=== PATIENT | female | born 1995 | race Two or more races ===

== ENCOUNTER 2017-01-05 14:16 | Inpatient (IN) | payer BC ==
[2017-01-05 15:03] LABS: Urine Bacteria 1+ (Absent); Urine Bilirubin Negative (Negative); Urine Glucose Negative (Negative); Urine Nitrite Negative (Negative)
[2017-01-05 15:20] LABS: Benzodiazepine Urine Screen None Detected (None Detect)
[2017-01-05] MEDS ORDERED: LORazepam TAB(*) 1 MG PO ONE (16:04)
[2017-01-05 16:10] LABS: Hematocrit 40 % (35-47); Hemoglobin 12.9 g/dl (12.0-16.0); Mean Corpuscular HGB Conc 33 g/dl (31-36); Mean Corpuscular Hemoglobin 26 pg (27-31); Mean Corpuscular Volume 81 fL (80-97); Mean Platelet Volume 9 um3 (7.4-10.4); Red Blood Count 4.91 10^6/ul (4.0-5.4); Red Cell Distribution Width 16 % (10.5-15); White Blood Count 7.4 10^3/ul (3.5-10.8)
--- NOTE | 2017-01-05 16:15 | ED ---
Psychiatric Complaint - HPI Summary HPI Summary: Patient presents with family. She states she has been feeling depressed d/t boyfriend breaking up with her. She has anxiety and depression at baseline and has been worsening. She takes sertraline and ativan PRN at home. Denies drugs or ETOH use. Denies physical pain. No other health problems. Denies SI/ HI or self harm at this time. - History Of Current Complaint Chief Complaint: EDMentalHealth Time Seen by Provider: 01/05/17 14:31 Hx Obtained From: Patient ?: No Onset/Duration: Sudden Onset Timing: Constant Severity Initially: Moderate Severity Currently: Moderate Character: Depressed, Anxious Aggravating Factor(s): Nothing Alleviating Factor(s): Nothing Associated Signs And Symptoms: Positive: Confused Has Suicidal: Reports: Thoughts Has Homicidal: Reports: Thoughts - Risk Factor(s) Completed Suicide Risk Factors: Male, White P[place] - Allergies/Home Medications Allergies/Adverse Reactions: Allergies Allergy/AdvReac Type Severity Reaction Status Date / Time No Known Allergies Allergy Verified 01/05/17 14:29 PMH/Surg Hx/FS Hx/Imm Hx Previously Healthy: Yes Endocrine/Hematology History: Denies: Hx Diabetes Cardiovascular History: Denies: Hx Hypertension, Other Cardiovascular Problems/Disorders Respiratory History: Denies: Other Respiratory Problems/Disorders GI History: Denies: Other GI Disorders History: Denies: Hx Renal Disease Musculoskeletal History: Denies: Other Musculoskeletal History Sensory History: Denies: Hx Contacts or Glasses, Hx Hearing Aid Opthamlomology History: Denies: Hx Contacts or Glasses Neurological History: Denies: Other Neuro Impairments/Disorders Psychiatric History: Reports: Hx Anxiety - ON MEDS, Hx Depression - ON MEDS - Surgical History Hx Anesthesia Reactions: No - Immunization History Immunizations Up to Date: Unable to Obtain/Confirm Infectious Disease History: No Infectious Disease History: Denies: Traveled Outside the [place] in Last 30 Days - Family History Known Family History: Positive: Other - no fhx of anesthesia rxn, malignant hyperthermia Negative: Cardiac Disease - Social History Occupation: Unemployed Lives: With Family Alcohol Use: None Hx Substance Use: Yes Substance Use Type: Reports: Marijuana Hx Tobacco Use: No Smoking Status (MU): Never Smoked Tobacco Review of Systems Constitutional: Negative Negative: Chills, Fatigue Eyes: Negative Cardiovascular: Negative Respiratory: Negative Genitourinary: Negative Positive: no symptoms reported, see HPI Neurological: Negative Positive: Anxious, Depressed All Other Systems Reviewed And Are Negative: Yes Physical Exam Triage Information Reviewed: Yes Vital Signs On Initial Exam: Initial Vitals Temp Pulse Resp BP Pulse Ox 101 F 118 22 139/73 99 01/05/17 14:20 01/05/17 14:20 01/05/17 14:20 01/05/17 14:20 01/05/17 14:20 Vital Signs Reviewed: Yes Appearance: Positive: Well-Appearing, Well-Nourished Skin: Positive: Warm, Skin Color Reflects Adequate Perfusion Head/Face: Positive: Normal Head/Face Inspection Eyes: Positive: EOMI, TAMARA, Conjunctiva Clear Neck: Positive: Supple, No Lymphadenopathy Respiratory/Lung Sounds: Positive: Clear to Auscultation, Breath Sounds Present Cardiovascular: Positive: Normal, RRR, Pulses are Symmetrical in both Upper and Lower Extremities Musculoskeletal: Positive: Strength/ROM Intact Neurological: Positive: Speech Normal Psychiatric: Positive: Normal - Carola Coma Scale Coma Scale Total: 15 Diagnostics - Vital Signs Vital Signs Temp Pulse Resp BP Pulse Ox 01/05/17 14:20 101 F 118 22 139/73 99 - Laboratory Lab Results: Lab Results 01/05/17 01/05/17 Range/Units 14:20 14:20 Urine Color Yellow Urine Appearance Cloudy Urine pH 6.0 (5-9) Ur Specific [place] 1.029 (1.010-1.030) Urine Protein 1+(30 mg/dl) H (Negative) Urine Ketones 2+ H (Negative) Urine Blood Negative (Negative) Urine Nitrate Negative (Negative) Urine Bilirubin Negative (Negative) Urine Urobilinogen Negative (Negative) Ur Leukocyte Esterase Negative (Negative) Urine WBC (Auto) Absent (Absent) Urine RBC (Auto) Absent (Absent) Ur Squamous Epith Cells Present H (Absent) Urine Bacteria 1+ H (Absent) Hyaline Casts Present H (Absent) Urine Glucose Negative (Negative) Urine Opiates Screen None detected (None Detect) Ur Barbiturates Screen None detected (None Detect) Ur Phencyclidine Scrn None detected (None Detect) Ur Amphetamines Screen None detected (None Detect) U Benzodiazepines Scrn None detected (None Detect) Urine Cocaine Screen None detected (None Detect) U Cannabinoids Screen Presumptive positive H (None Detect) Result Diagrams: 01/05/17 15:45 01/05/17 15:45 Lab Statement: Any lab studies that have been ordered have been reviewed, and results considered in the medical decision making process. Course/Dx - Course Course Of Treatment: Patient evaluated for depression and anxiety. She is cleared for MHU. Will admit for observation. Given ativan in ED for anxiety. - Differential Dx/Clinical Impression Provider Diagnosis: Depression Discharge - Discharge Plan Condition: Stable Disposition: ADMITTED TO [facility] Referrals: Samia Schulte MD [Primary Care Provider] -
[2017-01-05 16:23] LABS: ALT 12 U/L (7-52); AST 17 U/L (13-39); Albumin 4.4 g/dL (3.2-5.2); Alkaline Phosphatase 44 U/L (34-104); Anion Gap 8 mmol/L (2-11); BUN/Creatinine Ratio 15.6 (8-20); Blood Urea Nitrogen 12 mg/dL (6-24); CO2 Carbon Dioxide 24 mmol/L (22-32); Calcium 10.5 mg/dL (8.6-10.3); Chloride 106 mmol/L (101-111); EGFR African American 122.9 (>60); EGFR Non-African American 95.6 (>60); Globulin 3.6 g/dL (2-4); Glucose 109 mg/dL (70-100); Potassium 3.4 mmol/L (3.5-5.0); Sodium 138 mmol/L (133-145)
[2017-01-05 16:45] LABS: Acetaminophen < 15 mcg/mL; Alcohol < 10 mg/dL (<10); Salicylate < 2.50 mg/dL (<30)
[2017-01-05 16:49] LABS: TSH (Thyroid Stimulating Horm) 1.15 mcIU/mL (0.34-5.60)
[2017-01-05] MEDS ORDERED: Al Hydrox/Mg Hydrox/Simet LIQ* 30 ML UDC PO PRN (21:35)
[2017-01-06] MEDS: hydrOXYzine HCL TAB* 50 MG PO PRN ×2 (06:10→16:23)
[2017-01-06] MEDS: Sertraline* 100 MG TAB PO SCH (08:02)
[2017-01-06] MEDS: Vitamin THERAPEUTIC TAB PO SCH (08:02)
[2017-01-06] MEDS: Acetaminophen TAB* 325 MG PO PRN (11:11)
--- NOTE | 2017-01-06 11:29 | PN ---
MHU: Group Therapy Note - Service Type Service Type: [id number] Group Psychotherapy - Cognitive Behavioral Group Therapy ( CBT):Patient was attentive and participatory in CBT programming this morning, and remained in good behavioral control. Patient expressed positive insights regarding relevant treatment interventions and goals.
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
[2017-01-06] MEDS ORDERED: Clomipramine (NF) 50 MG CAP PO SCH (21:00)
[2017-01-07] MEDS: Vitamin THERAPEUTIC TAB PO SCH (08:23)
[2017-01-07] MEDS: hydrOXYzine HCL TAB* 50 MG PO PRN ×3 (08:23→23:12)
[2017-01-07] MEDS: Sertraline* 100 MG TAB PO SCH (08:23)
[2017-01-07] MEDS: Ondansetron TAB* 4 MG PO PRN (12:29)
[2017-01-07] MEDS: CMC:ClomiPRAMINE (NF) 25 MG CAP PO SCH (21:59)
[2017-01-08] MEDS: hydrOXYzine HCL TAB* 50 MG PO PRN ×2 (07:15→13:41)
[2017-01-08] MEDS: Sertraline* 100 MG TAB PO SCH (08:20)
[2017-01-08] MEDS: Vitamin THERAPEUTIC TAB PO SCH (08:20)
--- NOTE | 2017-01-08 18:13 | PN ---
Subjective - Subjective Service Type: 39711 Hosp care 15 min low complexity Subjective: Michelle reports of feeling much better with improved mood and decreased anxiety. Went out on staff pass. Still not sleeping well. Objective - Appearance Appearance: Thin Framed Dysmorphic Features: No Hygiene: Normal Grooming: Fairly Well Kept - Behavior Psychomotor Activities: Normal Exhibits Abnormal Movement: No - Attitude and Relatedness Attitude and Relatedness: Appropriate Eye Contact: Good - Speech Quality: Unpressured Latencies: Normal Quantity: Appropriate - Mood Patient's Decription of Mood: "Fine" - Affect Observed Affect: Non-labile Affect Consistent with: Euthymia - Thought Process Patient's Thought Process: Coherent, Goal Directed Thought Content: No Passive Wish, No Suicidal Planning, No Homicidal Ideation, No Paranoid Ideation - Sensorium Experiencing Hallucinations: No, Sensorium is Clear Type of Hallucinations: Visual: No, Auditory: No, Command: No - Level of Consciousness Level of Consciousness: Alert Orientation: Yes Intact, Yes Orientated to Time, Yes Orientated to Place, Yes Orientated to Person - Insight and Judgement Insight and Judgement: Fair - Group Participation Particating in Group Activities: Yes - Medication Management Medication Management Adherence: Yes Assessment - Assessment Merits Inpatient Hospitalization: Consolidate Improvements, For Discharge Planning Plan - Plan Treatment Plan: Name: MICHELLE LONDON Birthdate: 1995 [id number] Continued Medication Management: Continue Outpt Medication Medications: Current Medications Acetaminophen (Tylenol Tab*) 650 mg PO Q4H PRN PRN Reason: PAIN or TEMP > 101 F Last Admin: 01/06/17 11:11 Dose: 650 mg Al Hydrox/Mg Hydrox/Simethicone (Maalox Plus*) 30 ml PO Q4H PRN PRN Reason: INDIGESTION Clomipramine HCl (Clomipramine (Nf)) 50 mg PO BEDTIME [facility] Last Admin: 01/07/17 21:59 Dose: 50 mg Diphenhydramine HCl (Benadryl Po*) 50 mg PO Q6H PRN PRN Reason: INSOMNIA Hydroxyzine HCl (Atarax Tab*) 50 mg PO Q6H PRN PRN Reason: ANXIETY Last Admin: 01/08/17 13:41 Dose: 50 mg Multivitamins (Theragran Tab*) 1 tab PO DAILY GÓMZE Last Admin: 01/08/17 08:20 Dose: 1 tab Ondansetron HCl (Zofran Tab*) 4 mg PO Q8H PRN PRN Reason: NAUSEA Last Admin: 01/07/17 12:29 Dose: 4 mg Sertraline HCl (Zoloft*) 100 mg PO DAILY GÓMEZ Last Admin: 01/08/17 08:20 Dose: 100 mg - Discharge Plan Discharge Plan: Outpatient Follow Up Outpatient Program: [facility]
[2017-01-08] MEDS: Acetaminophen TAB* 325 MG PO PRN (19:58)
[2017-01-08] MEDS: CMC:ClomiPRAMINE (NF) 25 MG CAP PO SCH (20:53)
[2017-01-09] MEDS: Sertraline* 100 MG TAB PO SCH (08:08)
[2017-01-09] MEDS: Vitamin THERAPEUTIC TAB PO SCH (08:08)
[2017-01-09] MEDS: hydrOXYzine HCL TAB* 50 MG PO PRN (08:08)
--- NOTE | 2017-01-09 13:20 | PN ---
MHU: Group Therapy Note - Service Type Service Type: [id number] Group Psychotherapy - Cognitive Behavioral Group Therapy ( CBT):Patient was attentive and participatory in CBT programming this morning, and remained in good behavioral control. Patient expressed positive insights regarding relevant treatment interventions and goals.
--- NOTE | 2017-01-09 15:31 | PN ---
Subjective - Subjective Service Type: [id number] Hosp care 15 min low complexity Subjective: Patient reports improvement in mood and anxiety. She states that "it's been a long time since going this long without weed." She states she is trying to identify her own emotions and trying to take responsibility for them. She is proud of herself for having a difficult conversation with her mother and being able to talk through it. She states she is "learning a lot" while hospitalized. She reports improved sleep and appetite. She denies nausea and has only taken ondansetron once. She endorses anxiousness about discharge and would prefer to continue to stay until mid-week to gain full benefit of hospitalization. Patient reports onset of dry mouth and increased tremor. Will decrease sertraline and obtain clomipramine level. We discuss use of gabapentin for off- label anxiolytic. Objective - Appearance Appearance: Well Developed/Nourished Dysmorphic Features: Yes Hygiene: Normal Grooming: Fairly Well Kept - Behavior Psychomotor Activities: Normal - Attitude and Relatedness Attitude and Relatedness: Cooperative Eye Contact: Good - Speech Quality: Unpressured Latencies: Normal Quantity: Appropriate - Mood Patient's Decription of Mood: "Good" - Affect Observed Affect: Good Affect Consistent with: Euthymia - Thought Process Patient's Thought Process: Coherent, Goal Directed Thought Content: No Passive Wish, No Suicidal Planning, No Homicidal Ideation, No Paranoid Ideation - Sensorium Experiencing Hallucinations: No, Sensorium is Clear Type of Hallucinations: Visual: No, Auditory: No, Command: No - Level of Consciousness Level of Consciousness: Alert Orientation: Yes Intact, Yes Orientated to Time, Yes Orientated to Place, Yes Orientated to Person - Impulse Control Impulse Control: Tenuous - Insight and Judgement Insight and Judgement: Good - Group Participation Particating in Group Activities: Yes - Medication Management Medication Management Adherence: Yes Assessment - Assessment Merits Inpatient Hospitalization: For Immediate Safety, For Stabilization, For Discharge Planning Inpatient DSM-IV Dx: major depressive d/o; excoriation d/o; cannabis use d/o; consider dependant personality traits Plan - Plan Treatment Plan: Name: MICHELLE LONDON Birthdate: 1995 [id number] continue acute intensive psychiatric treatment. DC hydroxyzine and trial gabapentin; decrease sertraline and obtain TCA level. Continue q30min observation and allow staff pass. Continued Medication Management: Different Medication Medications: Current Medications Acetaminophen (Tylenol Tab*) 650 mg PO Q4H PRN PRN Reason: PAIN or TEMP > 101 F Last Admin: 01/08/17 19:58 Dose: 650 mg Al Hydrox/Mg Hydrox/Simethicone (Maalox Plus*) 30 ml PO Q4H PRN PRN Reason: INDIGESTION Clomipramine HCl (Clomipramine (Nf)) 50 mg PO BEDTIME [facility] Last Admin: 01/08/17 20:53 Dose: 50 mg Diphenhydramine HCl (Benadryl Po*) 50 mg PO Q6H PRN PRN Reason: INSOMNIA Gabapentin (Neurontin Cap(*)) 100 mg PO BID [facility] Multivitamins (Theragran Tab*) 1 tab PO DAILY [facility] Last Admin: 01/09/17 08:08 Dose: 1 tab Ondansetron HCl (Zofran Tab*) 4 mg PO Q8H PRN PRN Reason: NAUSEA Last Admin: 01/07/17 12:29 Dose: 4 mg Sertraline HCl (Zoloft*) 50 mg PO DAILY GÓMEZ - Discharge Plan Discharge Plan: Outpatient [facility]
[2017-01-09] MEDS: Gabapentin CAP(*) 100 MG PO SCH (21:10)
[2017-01-09] MEDS: CMC:ClomiPRAMINE (NF) 25 MG CAP PO SCH (21:11)
[2017-01-10] MEDS: Sertraline* 50 MG TAB PO SCH (08:19)
[2017-01-10] MEDS: Gabapentin CAP(*) 100 MG PO SCH ×3 (08:19→21:17)
[2017-01-10] MEDS: Vitamin THERAPEUTIC TAB PO SCH (08:19)
[2017-01-10] MEDS: Ondansetron TAB* 4 MG PO PRN (12:01)
--- NOTE | 2017-01-10 13:28 | CONS ---
PSYCHOLOGICAL REPORT: DATE OF CONSULTATION: 01/10/17 REASON FOR REFERRAL: Ela was referred for personality testing secondary to concerns regarding characterological vulnerabilities consistent with borderline personality disorder, as well as in assessing possible lethality. The patient expressed intrusive thoughts of suicidal rumination prior to her admission. TEST ADMINISTERED: Ela completed the [place] Multiphasic Personality Inventory-2 (MMPI-2), and was given feedback regarding testing results in individual conversation. She has also been seen by this medical writer consistently in the context of cognitive behavioral group psychotherapy facilitated by this medical writer. BEHAVIORAL OBSERVATIONS: Ela is a 21-year-old female who describes a long history of delicate self-mutilation, showing scarring on ankles and wrists. Her cuts have never required medical attention, but the behaviors have persisted over a period of years. She describes beginning to pick at her skin at the age of 11, and beginning to cut in high school years. She describes cutting intermittently, often going a year at a time without engaging in such conduct, but it tends to recur under periods of intense emotional duress. Most recent difficulties are associated with breakup of a boyfriend of 8 months duration. She describes engaging in a pattern of interventions, which she feels might have overwhelmed him, stating, "I did not take care of him very well ". Discussion also addressed more stable sense of disappointment in that she was unable to complete a semester at [employer] where she had begun studying Music as her major. She describes having always thought of wanting to be a vocal music teacher from the time she was in 7th grade up until college, where she describes not fitting in well with her peers at [employer] and describing how, "alter competitive" it is and do not identify with studying music in the fashion that they demanded of her. This remains a social disappointment as she very clearly identifies with her enjoyment of music. However, she does report not having played the flute in over a year's time, which she thinks is very uncharacteristic of her. She presently works at [employer] full-time, but is thinking of asking for part-time status in order to attend mental health treatment including the [facility] Program through [facility] as well as considering enrolling in classes at [employer] to resume studies on a part-time basis. She is unsure of where she would want to go for full-time academics presently, but hopes to begin to find some clarity in regards as to whether or not she wishes to pursue her continuing interest in music or change majors in her interest. Ela presents with good affect, that is euthymic in both individual and group conversation. She is empathic with staff and peers and initiates thoughtful clinical questions and clearly is in a place and time where she is, hoping to elicit help for better understanding and comprehension of how to manage her symptoms. In particular, she expresses apprehensions about self- perception and was able to discuss this in relevant context of appropriate developmental dynamic for her at this point of time in her life. TEST RESULTS: Ela provides a distress profile on the validity scale indices on this administration of the MMPI-2, having elevated the emotional duress scales significantly (T = 90 to 100). She subsequently elevates 7 of the 10 clinical indices with the most prominent elevations occurring on the neurotic triad, which she attains depression T score of 90 with concomitant elevations also occurring on the anxiety index as well as on the schizophrenia index, which in this case is descriptive of a person who is not feeling supported or understood by significant others in her life presently. Discussion with Ela associated this with her disappointments about her recent breakup as well as her struggles academically at [employer] On further discussion addressed physical symptoms, where she reports fairly intense and regular headaches and gastrointestinal symptoms, which are been consistent with persons who elevate the neurotic triad and who employ repression as the primary coping mechanism. Discussion here address the importance of finding expression for her difficulties in a more proactive fashion. IMPRESSIONS AND RECOMMENDATIONS: Ela felt that discussions addressing borderline personality traits in both her presentations as well as in testing contacts resonated well with her, and she was interested in learning more about how to manage these difficulties. Discussion addressed self-perception in particular as she does not press as a person who harbors a great deal of anger or resentments. She agreed with this quite quickly and described herself as being "a chameleon" and how she tries to fit in especially with significant partners in her life. Discussion addressed trying to develop and maintain more stable sense of self, which is less vulnerable to relational difficulties, relating how persons in her age range often have a great deal of difficulties and subsequent instability emotionally secondary to emotional duress in a relational context. Ela impresses as being a very good candidate to engage and benefit from insight oriented psychotherapies including educational and expressive group interventions. DIAGNOSTIC IMPRESSION: Supports major depressive disorder, moderate, without psychosis as well as borderline personality disorder. [id number]/[facility] #: [id number] SANYA
[2017-01-10] MEDS ORDERED: Gabapentin CAP(*) 100 MG PO SCH (15:17)
--- NOTE | 2017-01-10 15:25 | PN ---
Subjective - Subjective Subjective: Patient reports increase in anxiety and states this is likely due to nearing her chosen day of discharge. She agrees to have meeting with her mother and treatment team. She denies new side effects from medication and reports continued hand tremor. She continues to express gaining much benefit from admission to hospital. Patient reports mild urges to smoke cannabis r/t anxiety. Objective - Appearance Appearance: Well Developed/Nourished Dysmorphic Features: No Hygiene: Normal Grooming: Fairly Well Kept - Behavior Psychomotor Activities: Normal Exhibits Abnormal Movement: No - Attitude and Relatedness Attitude and Relatedness: Cooperative Eye Contact: Good - Speech Quality: Unpressured Latencies: Normal Quantity: Copious - Mood Patient's Decription of Mood: "Anxious" - Affect Observed Affect: Good Affect Consistent with: Euthymia - Thought Process Patient's Thought Process: Coherent, Goal Directed Thought Content: No Passive Wish, No Suicidal Planning, No Homicidal Ideation, No Paranoid Ideation - Sensorium Experiencing Hallucinations: No, Sensorium is Clear Type of Hallucinations: Visual: No, Auditory: No, Command: No - Level of Consciousness Level of Consciousness: Alert Orientation: Yes Intact, Yes Orientated to Time, Yes Orientated to Place, Yes Orientated to Person - Impulse Control Impulse Control: Tenuous - Insight and Judgement Insight and Judgement: Good - Group Participation Particating in Group Activities: Yes - Medication Management Medication Management Adherence: Yes Assessment - Assessment Merits Inpatient Hospitalization: For Immediate Safety, For Stabilization, For Ongoing Evaluation, Consolidate Improvements Inpatient DSM-IV Dx: major depressive d/o; excoriation d/o; cannabis use d/o; consider dependant personality traits Plan - Plan Treatment Plan: Name: MICHELLE LONDON Birthdate: 1995 [id number] continue acute intensive psychiatric treatment. Increase gabapentin; obtain TCA level. Continue q30min observation and allow staff pass. Continued Medication Management: Different Medication Medications: Current Medications Acetaminophen (Tylenol Tab*) 650 mg PO Q4H PRN PRN Reason: PAIN or TEMP > 101 F Last Admin: 01/08/17 19:58 Dose: 650 mg Al Hydrox/Mg Hydrox/Simethicone (Maalox Plus*) 30 ml PO Q4H PRN PRN Reason: INDIGESTION Clomipramine HCl (Clomipramine (Nf)) 50 mg PO BEDTIME [facility] Last Admin: 01/09/17 21:11 Dose: 50 mg Diphenhydramine HCl (Benadryl Po*) 50 mg PO Q6H PRN PRN Reason: INSOMNIA Gabapentin (Neurontin Cap(*)) 100 mg PO TID [facility] Multivitamins (Theragran Tab*) 1 tab PO DAILY [facility] Last Admin: 01/10/17 08:19 Dose: 1 tab Ondansetron HCl (Zofran Tab*) 4 mg PO Q8H PRN PRN Reason: NAUSEA Last Admin: 01/10/17 12:01 Dose: 4 mg Sertraline HCl (Zoloft*) 50 mg PO DAILY [facility] Last Admin: 01/10/17 08:19 Dose: 50 mg - Discharge Plan Discharge Plan: Outpatient Follow Up Outpatient Program: [facility]
[2017-01-10] MEDS: CMC:ClomiPRAMINE (NF) 25 MG CAP PO SCH (21:16)
[2017-01-10] MEDS: diPHENhydraMINE PO* 50 MG PO PRN (22:13)
[2017-01-11] MEDS: Gabapentin CAP(*) 100 MG PO SCH ×3 (08:30→21:00)
[2017-01-11] MEDS: Sertraline* 50 MG TAB PO SCH (08:30)
[2017-01-11] MEDS: Vitamin THERAPEUTIC TAB PO SCH (08:30)
[2017-01-11 10:19] LABS: BUN/Creatinine Ratio 14.1 (8-20); EGFR African American 100.1 (>60); EGFR Non-African American 77.8 (>60); Potassium 3.8 mmol/L (3.5-5.0)
--- NOTE | 2017-01-11 16:24 | PN ---
Subjective - Subjective Service Type: 73387 Hosp care 35 min high complexity Subjective: Patient presents as euthymic with bright affect upon approach. She agreed to start on a written safety plan to present at family meeting this afternoon. Patient, her mother, senior grant writer and psychiatric social worker Steph Bermeo met for nearly one hour to discuss treatment, progress and discharge planning. See psychiatric social worker notes for full details. Meeting ended with plans to postpone discharge due to patient's mother being opposed to discharge. Vane expressed thoughts and feelings appropriately and was validated for her efforts. Objective - Appearance Appearance: Well Developed/Nourished Dysmorphic Features: No Hygiene: Normal Grooming: Well Kept - Behavior Psychomotor Activities: Normal Exhibits Abnormal Movement: No - Attitude and Relatedness Attitude and Relatedness: Cooperative Eye Contact: Good - Speech Quality: Unpressured Latencies: Normal Quantity: Appropriate - Mood Patient's Decription of Mood: "Anxious" - Affect Observed Affect: Good Affect Consistent with: Euthymia - Thought Process Patient's Thought Process: Coherent, Goal Directed Thought Content: No Passive Wish, No Suicidal Planning, No Homicidal Ideation, No Paranoid Ideation - Sensorium Experiencing Hallucinations: No, Sensorium is Clear Type of Hallucinations: Visual: No, Auditory: No, Command: No - Level of Consciousness Level of Consciousness: Alert Orientation: Yes Intact, Yes Orientated to Time, Yes Orientated to Place, Yes Orientated to Person - Impulse Control Impulse Control: Intact - Insight and Judgement Insight and Judgement: Good - Group Participation Particating in Group Activities: Yes - Medication Management Medication Management Adherence: Yes Assessment - Assessment Merits Inpatient Hospitalization: For Immediate Safety, For Stabilization, Pending Safe DC Plan Inpatient DSM-IV Dx: major depressive d/o; excoriation d/o; cannabis use d/o; consider dependant personality traits Plan - Plan Treatment Plan: Name: MICHELLE LONDON Birthdate: 1995 [id number] continue acute intensive psychiatric treatment. awaiting TCA level. Continue q30min observation and allow staff pass. Continued Medication Management: Different Medication Medications: Current Medications Acetaminophen (Tylenol Tab*) 650 mg PO Q4H PRN PRN Reason: PAIN or TEMP > 101 F Last Admin: 01/08/17 19:58 Dose: 650 mg Al Hydrox/Mg Hydrox/Simethicone (Maalox Plus*) 30 ml PO Q4H PRN PRN Reason: INDIGESTION Clomipramine HCl (Clomipramine (Nf)) 50 mg PO BEDTIME [facility] Last Admin: 01/10/17 21:16 Dose: 50 mg Diphenhydramine HCl (Benadryl Po*) 50 mg PO Q6H PRN PRN Reason: INSOMNIA Last Admin: 01/10/17 22:13 Dose: 50 mg Gabapentin (Neurontin Cap(*)) 100 mg PO 0900,1400,2100 [facility] Last Admin: 01/11/17 15:03 Dose: 100 mg Multivitamins (Theragran Tab*) 1 tab PO DAILY [facility] Last Admin: 01/11/17 08:30 Dose: 1 tab Ondansetron HCl (Zofran Tab*) 4 mg PO Q8H PRN PRN Reason: NAUSEA Last Admin: 01/10/17 12:01 Dose: 4 mg Sertraline HCl (Zoloft*) 50 mg PO DAILY [facility] Last Admin: 01/11/17 08:30 Dose: 50 mg - Discharge Plan Discharge Plan: Outpatient Follow Up Outpatient Program: [facility]
--- NOTE | 2017-01-11 16:33 | PN ---
MHU: Group Therapy Note - Service Type Service Type: [id number] Group Psychotherapy - Medication Education Group: Patient was attentive and participatory in group, and remained in good behavioral control. Patient expressed positive insights regarding relevant treatment interventions. Patient stated understanding of material discussed and had appropriate questions.
[2017-01-11] MEDS: CMC:ClomiPRAMINE (NF) 25 MG CAP PO SCH (21:00)
[2017-01-11] MEDS: diPHENhydraMINE PO* 50 MG PO PRN (22:04)
[2017-01-12] MEDS: Ondansetron TAB* 4 MG PO PRN (08:00)
[2017-01-12] MEDS: Gabapentin CAP(*) 100 MG PO SCH ×2 (08:29→20:22)
[2017-01-12] MEDS: Sertraline* 50 MG TAB PO SCH (08:29)
[2017-01-12] MEDS: Vitamin THERAPEUTIC TAB PO SCH (08:30)
--- NOTE | 2017-01-12 12:02 | PN ---
MHU: Group Therapy Note - Service Type Service Type: 12103 Group Psychotherapy - Cognitive Behavioral Group Therapy ( CBT):Patient was attentive and participatory in CBT programming this morning, and remained in good behavioral control. Patient expressed positive insights regarding relevant treatment interventions and goals.
--- NOTE | 2017-01-12 13:01 | PN ---
Subjective - Subjective Service Type: 83635 Hosp care 15 min low complexity Subjective: Patient sitting in her room with her mother, reviewing WRAP booklet. Positive interactions noted between the two of them. Patient reports difficulty sleeping last night due to anxious thoughts. She states she has noticed physical symptoms this morning: heart palpitations, shaking, racing thoughts. She agrees to increase in gabapentin and will also utilize grounding techniques. She states she would like to remain in hospital until monday to solidify dc plan and to gain full benefit from programming. Objective - Appearance Appearance: Well Developed/Nourished Dysmorphic Features: No Hygiene: Normal Grooming: Well Kept - Behavior Psychomotor Activities: Normal Exhibits Abnormal Movement: No - Attitude and Relatedness Attitude and Relatedness: Cooperative Eye Contact: Good - Speech Quality: Unpressured Latencies: Normal Quantity: Appropriate - Mood Patient's Decription of Mood: "Anxious" - Affect Observed Affect: Good Affect Consistent with: Euthymia - Thought Process Patient's Thought Process: Coherent, Goal Directed Thought Content: No Passive Wish, No Suicidal Planning, No Homicidal Ideation, No Paranoid Ideation - Sensorium Experiencing Hallucinations: No, Sensorium is Clear Type of Hallucinations: Visual: No, Auditory: No, Command: No - Level of Consciousness Level of Consciousness: Alert Orientation: Yes Intact, Yes Orientated to Time, Yes Orientated to Place, Yes Orientated to Person - Impulse Control Impulse Control: Intact - Insight and Judgement Insight and Judgement: Good - Group Participation Particating in Group Activities: Yes - Medication Management Medication Management Adherence: Yes Assessment - Assessment Merits Inpatient Hospitalization: For Immediate Safety, For Stabilization, Consolidate Improvements, Pending Safe DC Plan Inpatient DSM-IV Dx: major depressive d/o; excoriation d/o; cannabis use d/o; consider dependant personality traits Plan - Plan Treatment Plan: Name: MICHELLE LONDON Birthdate: 1995 [id number] continue acute intensive psychiatric treatment. awaiting TCA level. Continue q30min observation and allow staff pass. Continued Medication Management: Different Medication Medications: Current Medications Acetaminophen (Tylenol Tab*) 650 mg PO Q4H PRN PRN Reason: PAIN or TEMP > 101 F Last Admin: 01/08/17 19:58 Dose: 650 mg Al Hydrox/Mg Hydrox/Simethicone (Maalox Plus*) 30 ml PO Q4H PRN PRN Reason: INDIGESTION Clomipramine HCl (Clomipramine (Nf)) 50 mg PO BEDTIME [facility] Last Admin: 01/11/17 21:00 Dose: 50 mg Diphenhydramine HCl (Benadryl Po*) 50 mg PO Q6H PRN PRN Reason: INSOMNIA Last Admin: 01/11/17 22:04 Dose: 50 mg Gabapentin (Neurontin Cap(*)) 300 mg PO BID [facility] Gabapentin (Neurontin Cap(*)) 100 mg PO DAILY PRN PRN Reason: AGITATION/ANXIETY Multivitamins (Theragran Tab*) 1 tab PO DAILY [facility] Last Admin: 01/12/17 08:30 Dose: 1 tab Ondansetron HCl (Zofran Tab*) 4 mg PO Q8H PRN PRN Reason: NAUSEA Last Admin: 01/12/17 08:00 Dose: 4 mg Sertraline HCl (Zoloft*) 50 mg PO DAILY [facility] Last Admin: 01/12/17 08:29 Dose: 50 mg - Discharge Plan Discharge Plan: Outpatient Follow Up Outpatient Program: [facility]
[2017-01-12] MEDS: Gabapentin CAP(*) 100 MG PO PRN (14:07)
[2017-01-12] MEDS: CMC:ClomiPRAMINE (NF) 25 MG CAP PO SCH (20:22)
[2017-01-13] MEDS: Gabapentin CAP(*) 100 MG PO SCH ×2 (08:18→20:15)
[2017-01-13] MEDS: Sertraline* 50 MG TAB PO SCH (08:19)
[2017-01-13] MEDS: Vitamin THERAPEUTIC TAB PO SCH (08:19)
--- NOTE | 2017-01-13 11:33 | PN ---
Subjective - Subjective Service Type: 35574 Hosp care 15 min low complexity Subjective: Patient who had been admitted with emotional dyscontrol, compulsive symptoms, and excoriation disorder. Her racing thoughts had partly stabilized but worsened after a difficult family meeting. She feels less anxious with the addition of Anafranil, albeit with severe dry mouth. Objective - Appearance Appearance: Well Developed/Nourished, Healthy Appearing Dysmorphic Features: No Hygiene: Normal Grooming: Well Kept - Behavior Psychomotor Activities: Normal Exhibits Abnormal Movement: No - Attitude and Relatedness Attitude and Relatedness: Appropriate Eye Contact: Good - Speech Quality: Unpressured Latencies: Normal Quantity: Appropriate - Mood Patient's Decription of Mood: "Sad" - Affect Observed Affect: Fair Affect Consistent with: Dysphoria - Thought Process Patient's Thought Process: Coherent Thought Content: No Passive Wish, No Suicidal Planning, No Homicidal Ideation, No Paranoid Ideation - Sensorium Experiencing Hallucinations: No, Sensorium is Clear Type of Hallucinations: Visual: No, Auditory: No, Command: No - Level of Consciousness Level of Consciousness: Alert Orientation: Yes Intact, Yes Orientated to Time, Yes Orientated to Place, Yes Orientated to Person - Impulse Control Impulse Control: Tenuous - Insight and Judgement Insight and Judgement: Good - Group Participation Particating in Group Activities: Yes - Medication Management Medication Management Adherence: Yes Assessment - Assessment Merits Inpatient Hospitalization: For Stabilization, Consolidate Improvements Inpatient DSM-IV Dx: major depressive d/o; excoriation d/o; cannabis use d/o; consider dependant personality traits Clinical Impression: Woman with excoriation and OCD pathology superimposed on emotional dyscontrol and recent breakup with boyfriend and issues with mother. She is being stabilized here with addition of a risky medication (Anafranil) and therapeutic group treatment. Cannabis use is also being addressed. Plan - Plan Treatment Plan: Name: MICHELLE LONDON Birthdate: 1995 [id number] Continued Medication Management: Different Medication - keep what she has now Medications: Current Medications Acetaminophen (Tylenol Tab*) 650 mg PO Q4H PRN PRN Reason: PAIN or TEMP > 101 F Last Admin: 01/08/17 19:58 Dose: 650 mg Al Hydrox/Mg Hydrox/Simethicone (Maalox Plus*) 30 ml PO Q4H PRN PRN Reason: INDIGESTION Clomipramine HCl (Clomipramine (Nf)) 50 mg PO BEDTIME [facility] Last Admin: 01/12/17 20:22 Dose: 50 mg Diphenhydramine HCl (Benadryl Po*) 50 mg PO Q6H PRN PRN Reason: INSOMNIA Last Admin: 01/11/17 22:04 Dose: 50 mg Gabapentin (Neurontin Cap(*)) 300 mg PO BID [facility] Last Admin: 01/13/17 08:18 Dose: 300 mg Gabapentin (Neurontin Cap(*)) 100 mg PO DAILY PRN PRN Reason: AGITATION/ANXIETY Last Admin: 01/12/17 14:07 Dose: 100 mg Multivitamins (Theragran Tab*) 1 tab PO DAILY [facility] Last Admin: 01/13/17 08:19 Dose: 1 tab Ondansetron HCl (Zofran Tab*) 4 mg PO Q8H PRN PRN Reason: NAUSEA Last Admin: 01/12/17 08:00 Dose: 4 mg Sertraline HCl (Zoloft*) 50 mg PO DAILY [facility] Last Admin: 01/13/17 08:19 Dose: 50 mg - Discharge Plan Discharge Plan: [facility]
[2017-01-13] MEDS: Gabapentin CAP(*) 100 MG PO PRN (14:20)
[2017-01-13] MEDS: CMC:ClomiPRAMINE (NF) 25 MG CAP PO SCH (20:15)
[2017-01-14] MEDS: Gabapentin CAP(*) 100 MG PO SCH ×2 (08:29→20:24)
[2017-01-14] MEDS: Vitamin THERAPEUTIC TAB PO SCH (08:30)
[2017-01-14] MEDS: Sertraline* 50 MG TAB PO SCH (08:30)
[2017-01-14] MEDS: Gabapentin CAP(*) 100 MG PO PRN (13:06)
[2017-01-14] MEDS: CMC:ClomiPRAMINE (NF) 25 MG CAP PO SCH (20:24)
[2017-01-15] MEDS: Sertraline* 50 MG TAB PO SCH (08:28)
[2017-01-15] MEDS: Gabapentin CAP(*) 100 MG PO SCH ×2 (08:28→20:28)
[2017-01-15] MEDS: Vitamin THERAPEUTIC TAB PO SCH (08:28)
[2017-01-15] MEDS: Gabapentin CAP(*) 100 MG PO PRN (15:19)
[2017-01-15] MEDS: CMC:ClomiPRAMINE (NF) 25 MG CAP PO SCH (20:28)
[2017-01-16 08:16] VITALS: BP 117/61
[2017-01-16] MEDS: Gabapentin CAP(*) 100 MG PO SCH (08:19)
[2017-01-16] MEDS: Vitamin THERAPEUTIC TAB PO SCH (08:20)
[2017-01-16] MEDS: Sertraline* 50 MG TAB PO SCH (08:20)
[2017-01-16 09:56] LABS: Clomipramine 52 ng/mL; Clomipramine & Norclomipramine 105 ng/mL (230-450)
[2017-01-16] MEDS: Gabapentin CAP(*) 100 MG PO PRN (13:21)
--- NOTE | 2017-01-17 05:22 | DS ---
CC: [facility] * DISCHARGE SUMMARY: DATE OF ADMISSION: 01/05/17 DATE OF DISCHARGE: 01/16/17 SUPERVISING PSYCHIATRIST: Dr. Guille Infante * (DICTATED BY WILSON MAYO NP) DISCHARGE DIAGNOSES: 1. Generalized anxiety disorder. 2. Major depressive disorder. 3. Borderline personality disorder. 4. Excoriation disorder. 5. Cannabis use disorder. CONDITION AT THE TIME OF DISCHARGE: Improved. The patient reports readiness for discharge and states that she is looking forward to returning home. She has made plans with her mother to pick her up today around 2 p.m. The patient states that she has had much decreased anxiety and has benefited from participating in groups and programming on the unit. She declines the need for substance use treatment and will return to counseling and medication management at [facility]. The patient denies suicidal ideation. She denies urges to self-harm. She states she is looking forward to returning to work on a part-time basis so that she can also participate in more intensive therapy in the outpatient setting. MENTAL STATUS EXAM: The patient is well developed and nourished and in no distress. She is well kempt and dressed in her own clothing. She does not exhibit psychomotor abnormality. She is alert and oriented x3. She is cooperative and pleasant. Eye contact is good. Her speech is articulate, soft , and normal rhythm. She reports her mood is "good" and her affect is congruent. She denies AV hallucinations. Her thought process is coherent and goal directed. She denies passive wish or suicidal ideation. Her impulse control is intact. Her insight and judgment are good. Fund of knowledge is excellent. DISCHARGE INSTRUCTIONS: Given to the patient in writing by nursing staff. A. Medications: 1. Clomipramine 50 mg p.o. bedtime. 2. Gabapentin 100 mg p.o. daily p.r.n. anxiety and also gabapentin 300 mg p.o. b.i.d. 3. Sertraline 50 mg p.o. daily. The above medications were electronically prescribed to [facility] on [facility]. The patient was given a 2-week supply with 1 refill. These orders were clarified with the pharmacist. B. Diet: Regular. C. Activity: Ambulation as tolerated. Tobacco cessation is not applicable and there are no pending labs or diagnostic studies at the time of discharge. D. Followup Care: The patient will return to [facility] and meet with community nurse, Giana Castellano, 01/18/17, at 1:00 p.m. and her nurse practitioner, Leigh Ann Buchanan, , 01/19/17, at 2 p.m. She can also follow up with Dr. Samia Schulte for primary care as needed. The patient was given information about DBT and Alcoholic Anonymous meetings in the Community. HOSPITAL COURSE: A. Reason for admission: The patient presented to the emergency department after being sent by her outpatient psychiatric nurse practitioner. The patient reported increased amounts of depression and anxiety and was unable to tolerate being alone in her own apartment. She had not been caring for herself and had been smoking increased amounts of cannabis. B. Psychiatric Treatment Rendered: The patient was admitted to adult behavioral services unit on voluntary status. Her code status is full. She was placed on safety checks every 15 minutes and encouraged to participate in unit programming. 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 Psychoeducation was done in regards to cannabis dependence and use of habit-forming medications such as benzodiazepine. The patient was agreeable to discontinue benzodiazepine and trial of gabapentin for anxiety and cannabis dependence. Clomipramine level was obtained and this was subtherapeutic at 105; however, the patient was notified of this level and reported improvement in symptoms; therefore, the dose was not changed due to synergist. The patient was also notified of synergistic properties of sertraline and clomipramine. She reported poor sleep while on the unit. She is willing to work on sleep hygiene habits and identify if the hospital environment was a factor. The patient completed an MMPI and discussed the results with psychologist, Dr. Blue. Please see his consultation report for results that endorsed major depressive disorder, anxiety disorder, and borderline personality disorder. The patient was pleasant and cooperative and in behavioral control. She engaged fully in programming and reported benefit from psychoeducational groups and therapeutic milieu. She reported mild thoughts of using cannabis, but otherwise reported intent to abstain from use. She declined offer of referral to outpatient substance abuse services. The patient reported improvement in skin picking and denied self-injurious behavior and urges. The patient agreed to treatment team meeting with her mother on the unit and this was planned for 01/11/17. During the course of the meeting, there was much discussion in regards to whether the patient was ready for discharge. Initially , the patient reported she was ready for discharge that day, as she had picked this day previously. However, during the meeting the patient decompensated quickly due to interactions between and her mother, and her mother and treatment team. The patient agreed to continue admission to [facility] for discharge planning purposes and improved communication with her mother. The patient reported improved efforts with the use of DBT materials learned on the unit. She also stated understanding of risk of discharge on Monday close to the weekend and opted to stay until Monday, which is today. The patient was safe on all checks. She denies suicidal ideations or passive wish. As stated above, she reported much improvement in mood and anxiety during hospitalization. She was given instructions about current medications and the importance of having limited supply at a time. The patient was encouraged to phone the [facility] or return to the ED with questions or concerns or if symptoms worsened. Due to an obligation to treat in less restrictive setting, the patient and treatment team are agreeable to discharge today. WILSON MAYO NP [id number]/[facility] #: [id number] SANYA
== END 2017-01-16 14:00 | disposition home or self-care (01) | DRG 756 ==
LOC: ED 14:16 → BSU 20:41
PROVIDERS: ADMIT Psychiatry & Neurology Psychiatry; ATTEND Psychiatry & Neurology Psychiatry
DX: F41.1 Generalized anxiety disorder (principal); F33.1 Major depressive disorder, recurrent, moderate; F60.3 Borderline personality disorder; F42.4 Excoriation (skin-picking) disorder; F12.10 Cannabis abuse, uncomplicated
CPT/HCPCS: 36415; 80048; 80053; 80307; 80320; 80329; 80335; 81003; 81015; 84443; 85025; 87086; 90853; 96102; 99222; 99231; 99233; 99238; A9270-GY; G0480

== ENCOUNTER 2017-09-03 00:36 | Emergency (ER) | payer BC ==
[2017-09-03] MEDS ORDERED: Ondansetron ODT TAB* 4 MG PO ONE (00:41)
[2017-09-03 01:09] LABS: ABS Basophils 0.1 10^3/ul (0-0.2); ABS Eosinophils 0.3 10^3/ul (0-0.6); ABS Lymphocytes 2.6 10^3/ul (1.0-4.8); ABS Monocytes 0.4 10^3/ul (0-0.8); ABS Nucleated RBC 0 10^3/ul; Eosinophil % 2.7 % (0-6); Hematocrit 37 % (35-47); Hemoglobin 11.9 g/dl (12.0-16.0); Lymphocyte % 27.3 % (25-47); Mean Corpuscular HGB Conc 32 g/dl (31-36); Mean Corpuscular Hemoglobin 26 pg (27-31); Mean Corpuscular Volume 81 fL (80-97); Mean Platelet Volume 8.3 um3 (7.4-10.4); Nucleated Red Blood Cells % 0.1; Platelet Count 305 10^3/ul (150-450); Red Blood Count 4.61 10^6/ul (4.00-5.40); Red Cell Distribution Width 17 % (10.5-15); White Blood Count 9.4 10^3/ul (3.5-10.8)
[2017-09-03 01:18] LABS: EGFR Non-African American 90.1 (>60)
[2017-09-03] MEDS ORDERED: Potassium Chlor TAB* 20 MEQ TAB.ER PO ONE (03:11)
--- NOTE | 2017-09-03 04:59 | ED ---
Fran Chew Rebecca, scribed for Gee Farr on 09/03/17 at 0059 . Substance Abuse/Use - HPI Summary HPI Summary: Pt is a 21 y/o F BIBA who presents to ED with EtOH intoxication s/p EtOH and marijuana use. Vomiting en route, per nurse's note. All information obtained from nurse and EMS. Level 5 caveat due to EtOH intoxication. - History Of Current Complaint Chief Complaint: EDSubstanceAbuse Stated Complaint: ETOH Hx Obtained From: EMS Hx From Patient Unobtainable Due To: Other - EtOH intoxication Ingestion History: Type/Name Of Drug - EtOH, marijuana Associated Signs And Symptoms: Vomiting - Allergies/Home Medications Allergies/Adverse Reactions: Allergies Allergy/AdvReac Type Severity Reaction Status Date / Time No Known Allergies Allergy Verified 01/05/17 14:29 PMH/Surg Hx/FS Hx/Imm Hx Endocrine/Hematology History: Denies: Hx Diabetes Cardiovascular History: Denies: Hx Hypertension, Other Cardiovascular Problems/Disorders Respiratory History: Denies: Other Respiratory Problems/Disorders GI History: Reports: Hx Irritable Bowel - See PCP but no active tx plan Denies: Other GI Disorders History: Denies: Hx Renal Disease Musculoskeletal History: Denies: Other Musculoskeletal History Sensory History: Denies: Hx Contacts or Glasses, Hx Hearing Aid Opthamlomology History: Denies: Hx Contacts or Glasses Neurological History: Denies: Other Neuro Impairments/Disorders Psychiatric History: Reports: Hx Anxiety - ON MEDS, Hx Depression - ON MEDS, Hx Community Mental [facility] - [facility] Denies: Hx Eating Disorder, Hx of Violent Episodes Against Others - Surgical History Hx Anesthesia Reactions: No Infectious Disease History: No Infectious Disease History: Denies: Traveled Outside the [place] in Last 30 Days - Family History Known Family History: Positive: Other - no fhx of anesthesia rxn, malignant hyperthermia Negative: Cardiac Disease - Social History Alcohol Use: None Hx Substance Use: Yes Substance Use Type: Reports: Marijuana Substance Use Comment - Amount & Last Used: Daily use, 4x daily Hx Tobacco Use: No Smoking Status (MU): Never Smoked Tobacco Review of Systems Positive: Other - EtOH intoxication Positive: Vomiting All Other Systems Reviewed And Are Negative: No - Comments Additional Review of Systems Comments: Level 5 caveat due to EtOH intoxication Physical Exam - Summary Physical Exam Summary: Appearance: No pain distress Skin: warm, dry, reflects adequate perfusion Head/face: normal Eyes: EOMI, TAMARA ENT: normal Neck: supple, non-tender Respiratory: CTA, breath sounds present Cardiovascular: RRR, pulses symmetrical Musculoskeletal: normal, strength/ROM intact Triage Information Reviewed: Yes Vital Signs On Initial Exam: Initial Vitals Temp Pulse Resp BP Pulse Ox 97.6 F 105 18 141/97 95 09/03/17 00:39 09/03/17 00:39 09/03/17 00:39 09/03/17 00:39 09/03/17 00:39 Vital Signs Reviewed: Yes Completion Of Physical Exam Limited Due To: Other - Level 5 caveat - EtOH intoxication Diagnostics - Vital Signs Vital Signs Temp Pulse Resp BP Pulse Ox 09/03/17 00:43 96 129/96 96 09/03/17 00:39 97.6 F 105 18 141/97 95 - Laboratory Result Diagrams: 09/03/17 00:49 09/03/17 00:49 Lab Statement: Any lab studies that have been ordered have been reviewed, and results considered in the medical decision making process. Course/Dx - Course Assessment/Plan: Pt is a 21 y/o F BIBA who presents to ED with EtOH intoxication s/p EtOH and marijuana use. Vomiting en route, per nurse's note. All information obtained from nurse and EMS. Level 5 caveat due to EtOH intoxication. Blood work was done with results including a serum alcohol of 157. At this point, pt is awake and able to ambulate. She will be D/C to home with Dx of alcohol intoxication. Pt understands and agrees. - Diagnoses Provider Diagnoses: Alcohol intoxication Discharge - Sign-Out/Discharge Documenting (check all that apply): Discharge/Admit/Transfer - Discharge - Discharge Plan Condition: Stable Disposition: HOME Patient Education Materials: Alcohol Intoxication (ED) Referrals: Samia Schulte MD [Primary Care Provider] - 3 Days Additional Instructions: RETURN TO ED FOR ANY NEW OR WORSENING SYMPTOMS. The documentation as recorded by the Fran cruz Rebecca accurately reflects the service I personally performed and the decisions made by , Gee Farr.
[2017-09-03 05:15] VITALS: BP 127/67
== END 2017-09-03 06:29 | disposition home or self-care (01) ==
LOC: ED 00:36
DX: F10.129 Alcohol abuse with intoxication, unspecified (principal); Y90.6 Blood alcohol level of 120-199 mg/100 ml
CPT/HCPCS: 36415; 80053; 80320; 85025; 99283; A9270-GY; G0480

== ENCOUNTER 2017-09-03 09:35 | Emergency (ER) | payer BC ==
[2017-09-03] MEDS ORDERED: Ondansetron INJ* 2 MG/ML VIAL IV ONE (10:13)
[2017-09-03] MEDS ORDERED: NS 0.9% 1000 ML* 1,000 ML IV ONE ×2 (10:13→11:30)
--- NOTE | 2017-09-03 12:40 | ED ---
Nausea/Vomiting/Diarrhea HPI - HPI Summary HPI Summary: Patient is a 21-year-old female who was recently discharged from the ED for EtOH. She returns with nausea and vomiting. She was not prescribed Zofran prior to discharge. She denies headache or other symptoms at this time. Endorses some dehydration. She attempted to drink fluids at home but was unable to keep anything down. She denies any fevers, sweats, chills. Denies any other systemic illness. - History of Current Complaint Chief Complaint: EDNauseaVomitDiarrh Stated Complaint: VOMITING/NAUSEA Time Seen by Provider: 09/03/17 09:59 Hx Obtained From: Patient, Family/Appetizer Packer ?: No Onset/Duration: Sudden Onset Timing: Constant Severity Initially: Mild Severity Currently: Mild Pain Intensity: 0 Pain Scale Used: 0-10 Numeric Aggravating Factor(s): Nothing Alleviating Factor(s): Vomiting Nausea/Vomiting Presence: Nauseated Vomiting Frequency: Every 1-2 hours Nausea/Vomiting Duration: 12-24 hours Diarrhea Presence: No - Risk Factors Influenza Risk Factors: Negative Surgical Obstruction Risk Factor(s): Negative - Allergies/Home Medications Allergies/Adverse Reactions: Allergies Allergy/AdvReac Type Severity Reaction Status Date / Time No Known Allergies Allergy Verified 09/03/17 09:49 PMH/Surg Hx/FS Hx/Imm Hx Previously Healthy: Yes Endocrine/Hematology History: Denies: Hx Diabetes Cardiovascular History: Denies: Hx Hypertension, Other Cardiovascular Problems/Disorders Respiratory History: Denies: Other Respiratory Problems/Disorders GI History: Reports: Hx Irritable Bowel - See PCP but no active tx plan Denies: Other GI Disorders History: Denies: Hx Renal Disease Musculoskeletal History: Denies: Other Musculoskeletal History Sensory History: Denies: Hx Contacts or Glasses, Hx Hearing Aid Opthamlomology History: Denies: Hx Contacts or Glasses Neurological History: Denies: Other Neuro Impairments/Disorders Psychiatric History: Reports: Hx Anxiety - ON MEDS, Hx Depression - ON MEDS, Hx Community Mental Health Tx - [facility] Denies: Hx Eating Disorder, Hx of Violent Episodes Against Others - Surgical History Hx Anesthesia Reactions: No - Immunization History Hx Pertussis Vaccination: No Immunizations Up to Date: Unable to Obtain/Confirm Infectious Disease History: No Infectious Disease History: Denies: Traveled Outside the [place] in Last 30 Days - Family History Known Family History: Positive: Other - no fhx of anesthesia rxn, malignant hyperthermia Negative: Cardiac Disease - Social History Occupation: Unemployed Lives: With Family Alcohol Use: Occasionally Hx Substance Use: Yes Substance Use Type: Reports: Marijuana Substance Use Comment - Amount & Last Used: Daily use, 4x daily Hx Tobacco Use: No Smoking Status (MU): Never Smoked Tobacco Review of Systems Constitutional: Negative Negative: Fever, Chills, Fatigue, Skin Diaphoresis Negative: Palpitations, Chest Pain Negative: Shortness Of Breath, Cough Positive: Vomiting, Nausea. Negative: Abdominal Pain, Diarrhea Genitourinary: Negative Positive: no symptoms reported, see HPI. Negative: burning, dysuria, discharge Negative: Bruising Positive: Headache Psychological: Normal All Other Systems Reviewed And Are Negative: Yes Physical Exam Triage Information Reviewed: Yes Vital Signs On Initial Exam: Initial Vitals Temp Pulse Resp BP Pulse Ox 96.6 F 97 16 128/78 95 09/03/17 09:47 09/03/17 09:47 09/03/17 09:47 09/03/17 09:47 09/03/17 09:47 Vital Signs Reviewed: Yes Appearance: Positive: Well-Appearing, Well-Nourished Skin: Positive: Warm, Skin Color Reflects Adequate Perfusion Head/Face: Positive: Normal Head/Face Inspection Eyes: Positive: EOMI, TAMARA, Conjunctiva Clear Neck: Positive: Supple, No Lymphadenopathy Respiratory/Lung Sounds: Positive: Clear to Auscultation, Breath Sounds Present Musculoskeletal: Positive: Normal, Strength/ROM Intact Neurological: Positive: Sensory/Motor Intact, Alert, Oriented to Person Place, Time, Speech Normal Psychiatric: Positive: Normal, Affect/Mood Appropriate AVPU Assessment: Alert Diagnostics - Vital Signs Vital Signs Temp Pulse Resp BP Pulse Ox 09/03/17 09:47 96.6 F 97 16 128/78 95 - Laboratory Lab Statement: Any lab studies that have been ordered have been reviewed, and results considered in the medical decision making process. Naus/Vom/Diarrhea Course/Dx - Course Course Of Treatment: During the course of treatment, fluids were replenished using 2 L NS. 4 mg Zofran given. Upon recheck 1 hour later, patient was feeling improved. She will continue to drink Gatorade and water and I have given her prescription for Zofran for her nausea. - Differential Dx/Diagnosis Provider Diagnoses: Nausea and Vomiting secondary to alcohol use Condition At Discharge: Stable Discharge - Sign-Out/Discharge Documenting (check all that apply): Discharge/Admit/Transfer - Discharge Plan Condition: Stable Disposition: HOME Prescriptions: Ondansetron ODT TAB* [Zofran 4 MG Odt TAB*] 4 mg PO Q6H PRN #12 tab.odt MDD 4 PRN Reason: Nausea Patient Education Materials: Acute Nausea and Vomiting (ED) Referrals: Samia Schulte MD [Primary Care Provider] - Additional Instructions: Drink plenty of fluids including water and Gatorade Eat salty and sugary foods Rest Zofran as needed for nausea - Billing Disposition and Condition Condition: STABLE Disposition: Home
[2017-09-03 13:45] VITALS: BP 121/66
== END 2017-09-03 13:45 | disposition home or self-care (01) ==
LOC: ED 09:35
DX: F10.10 Alcohol abuse, uncomplicated (principal); R11.2 Nausea with vomiting, unspecified; F41.9 Anxiety disorder, unspecified; F32.9 Major depressive disorder, single episode, unspecified
CPT/HCPCS: 96360; 96361; 99282; J2405

== ENCOUNTER 2018-05-17 21:15 | Emergency (ER) | payer BC ==
--- NOTE | 2018-05-17 21:22 | UC ---
Hand/Wrist HPI - HPI Summary HPI Summary: 22 year old woman comes in with a chief complaint of injury to the right index finger. Just prior to arrival she shot the finger in a car door. It did break the skin but it did not bleed for very long. She has good range of motion of the finger. The injuries over the DIP. It is painful to touch and with movement. It doesn't feel numb. No other injuries. Patient reports she is up- to-date on her tetanus. - History Of Current Complaint Stated Complaint: FINGER INJURY Time Seen by Provider: 05/17/18 21:20 - Allergies/Home Medications Allergies/Adverse Reactions: Allergies Allergy/AdvReac Type Severity Reaction Status Date / Time No Known Allergies Allergy Verified 05/17/18 21:33 PMH/Surg Hx/FS Hx/Imm Hx Previously Healthy: Yes Psychological History: Anxiety - Surgical History Surgical History: None - Family History Known Family History: Positive: Other - no fhx of anesthesia rxn, malignant hyperthermia Negative: Cardiac Disease - Social History Alcohol Use: Occasionally Substance Use Type: Marijuana Substance Use Comment - Amount & Last Used: Daily use, 4x daily Smoking Status (MU): Never Smoked Tobacco - Immunization History Most Recent Influenza Vaccination: n/a Most Recent Pneumonia Vaccination: n/a Review of Systems All Other Systems Reviewed And Are Negative: Yes Constitutional: Positive: Negative Skin: Positive: Other - SEE HPI Eyes: Positive: Negative ENT: Positive: Negative Respiratory: Positive: Negative Cardiovascular: Positive: Negative Gastrointestinal: Positive: Negative Genitourinary: Positive: Negative Motor: Positive: Negative Neurovascular: Positive: Negative Musculoskeletal: Positive: Other: - SEE HPI Neurological: Positive: Negative Psychological: Positive: Negative Is Patient Immunocompromised?: No Physical Exam Triage Information Reviewed: Yes Appearance: Well-Appearing, No Pain Distress, Well-Nourished Vital Signs Reviewed: Yes Eye Exam: Normal Eyes: Positive: Conjunctiva Clear Neck exam: Normal Neck: Positive: Supple Musculoskeletal: Positive: Other: - Right index finger has swelling at the DIP. Normal capillary refill distally. Patient reports slightly decreased sensation distal finger. Patient has full range of motion at the DIP and PIP and MCP. Strength is normal. Neurological Exam: Normal Neurological: Positive: Muscle Tone Normal Psychological Exam: Normal Psychological: Positive: Age Appropriate Behavior Skin: Positive: Other - RT INDEX FINGER; 2 SKIN TEARS EACH 3MM IN LENGTH. NOT BLEEDING. Hand/Wrist Course/Dx - Course Course Of Treatment: The wounds were cleaned and antibiotic ointment and a dressing placed. The nature of the lacerations were that suturing would not be helpful. They were not bleeding. I believe the numbness in the tip of the finger has swelling in the swelling goes down expect that to recover completely. Patient's finger has full range of motion at do not suspect tendon or ligament injury at this time. If she has any problems or gets worse she should follow-up with orthopedics. - Differential Dx/Diagnosis Provider Diagnosis: Crushing injury of right index finger, Laceration of right index finger Discharge - Sign-Out/Discharge Documenting (check all that apply): Patient Departure All imaging exams completed and their final reports reviewed: No - Discharge Plan Condition: Stable Disposition: HOME Patient Education Materials: Finger Laceration (ED), Finger Sprain (ED), Laceration Without Closure (ED) Referrals: Samia Schulte MD [Primary Care Provider] - Gaby Street MD [Medical Doctor] - Additional Instructions: FOLLOW UP WITH ORTHOPEDICS, DR STRE[address], IF NOT COMPLETELY IMPROVED. GET RECHECKED FOR ANY WORSENING OF YOUR CONDITION OR QUESTIONS OR CONCERNS. - Billing Disposition and Condition Condition: STABLE Disposition: Home
[2018-05-17 21:33] VITALS: BP 123/74
--- NOTE | 2018-05-18 10:45 | UC ---
- Progress Note Progress Note: RADIOLOGY REPORT REVIEWED. NO ACUTE OSSEOUS INJURY. NO CHANGE IN MGMT. Course/Dx - Diagnoses Provider Diagnoses: Crushing injury of right index finger, Laceration of right index finger Discharge - Sign-Out/Discharge Documenting (check all that apply): Post-Discharge Follow Up All imaging exams completed and their final reports reviewed: Yes - Discharge Plan Condition: Stable Disposition: HOME Patient Education Materials: Finger Laceration (ED), Finger Sprain (ED), Laceration Without Closure (ED) Referrals: Samia Schulte MD [Primary Care Provider] - Gaby Street MD [Medical Doctor] - Additional Instructions: FOLLOW UP WITH ORTHOPEDICS, DR [address], IF NOT COMPLETELY IMPROVED. GET RECHECKED FOR ANY WORSENING OF YOUR CONDITION OR QUESTIONS OR CONCERNS. - Billing Disposition and Condition Condition: STABLE Disposition: Home
== END 2018-05-17 22:05 | disposition home or self-care (01) ==
LOC: UCEAST 21:15
DX: S61.310A Laceration without foreign body of right index finger with damage to nail, initial encounter (principal); S67.190A Crushing injury of right index finger, initial encounter; Y92.9 Unspecified place or not applicable
CPT/HCPCS: 73140; 99212; G0463